=== PATIENT | female | born 1970 | race Two or more races ===

== ENCOUNTER 2018-06-30 14:45 | Inpatient (IN) | payer OTHER ==
[~2018-06-30] VITALS: Ht 152.4 cm; Wt 42.6 kg
== END 2018-07-08 16:35 | disposition home or self-care (01) | DRG 331 ==
LOC: EDSTATUS 14:45 → ADM 14:45 → O/R 07-05 06:35 → SURG 07-05 09:45 → SURH 07-05 17:55
PROVIDERS: Colon & Rectal Surgery
PROC: 0DTP4ZZ Resection of Rectum, Percutaneous Endoscopic Approach (ICD-10-PCS; 2018-07-05)
PROC: 07TC4ZZ Resection of Pelvis Lymphatic, Percutaneous Endoscopic Approach (ICD-10-PCS; 2018-07-05)
PROC: 0DJD8ZZ Inspection of Lower Intestinal Tract, Via Natural or Artificial Opening Endoscopic (ICD-10-PCS; 2018-07-05)
PROC: 0DTN4ZZ Resection of Sigmoid Colon, Percutaneous Endoscopic Approach (ICD-10-PCS; principal; 2018-07-05 09:45)
DX: C19 Malignant neoplasm of rectosigmoid junction (principal); I10 Essential (primary) hypertension

== ENCOUNTER 2018-08-10 06:15 | Day surgery (SDC) | payer OTHER | END 2018-08-10 10:50 | disposition home or self-care (01) | LOC: CIR.AMB 06:15 | DX: C20 Malignant neoplasm of rectum (principal) | CPT/HCPCS: 36561; C1751 ==

== ENCOUNTER 2019-06-30 08:49 | Day surgery (SDC) | payer OTHER | END 2019-06-30 18:00 | disposition home or self-care (01) | LOC: AMB-ENDOS 08:49 | DX: K64.1 Second degree hemorrhoids (principal) ==